=== PATIENT | male | born 1965 | race Caucasian/White ===

== ENCOUNTER 2024-09-27 11:33 | Emergency (ER) | payer MEDICAID ==
[~2024-09-27] VITALS: Ht 175.3 cm; Wt 64.0 kg
[2024-09-27 11:40] VITALS: O2SAT 100
[2024-09-27] MEDS ORDERED: CHLO473M11 MM (13:00)
[2024-09-27] MEDS ORDERED: ACET-2708 MT (13:00)
[2024-09-27] MEDS: KETOROLAC 30MG/ML VIAL IM STA (13:02)
[2024-09-27 13:15] VITALS: BP 129/82; PULSE 77; RESP 18; TEMP 36.8; O2SAT 100
== END 2024-09-27 13:16 | disposition home or self-care (01) ==
LOC: ER 11:33
DX: K08.89 Other specified disorders of teeth and supporting structures (principal); Z79.899 Other long term (current) drug therapy
CPT/HCPCS: 99283; 96372; J1885